=== PATIENT | male | born 1975 | race Caucasian/White ===

== ENCOUNTER 2020-08-17 22:06 | Inpatient (IN) | payer BC ==
[2020-08-17] MEDS ORDERED: SODIUM CHLORIDE 0.9% 500 ML 500 ML IV STA (23:09)
[2020-08-17] MEDS ORDERED: KETOROLAC 15 MG/ML 1 ML VIAL IVP STA (23:09)
[2020-08-17] MEDS ORDERED: DEXAMETHASONE SOD PHOSPHATE 10 MG/ML 1 ML VIAL IV STA (23:09)
[2020-08-17] MEDS ORDERED: SODIUM CHLORIDE 0.9% 1,000 ML IV STA ×2 (23:09)
[2020-08-17] MEDS ORDERED: ACETAMINOPHEN TAB 500 MG TAB PO STA (23:09)
--- NOTE | 2020-08-17 23:11 | ED ---
SOB HPI - General Chief Complaint: Shortness of Breath Stated Complaint: Covid+, low O2 Time Seen by Provider: 08/17/20 23:09 Source: patient, family, RN notes reviewed, old records reviewed Mode of arrival: ambulatory Limitations: no limitations - History of Present Illness Initial Comments: This is a 45-year-old male DF for evaluation of severe shortness of breath, no definite dyspneic during conversation. Patient in known positive for coronavirus had coronavirus positive on the . Symptoms have been increasing and worsening. Persistent fevers shortness of breath with cough bodyaches and pains. Chills. MD Complaint: shortness of breath, cough, pain with inspiration, anxiety -: week(s) Severity: severe Quality: dull, aching Consistency: constant Improves With: rest Worsens With: exertion, movement, coughing Known History Of: other (none) Context: recent URI Associated Symptoms: fever, cough, sputum production Treatments Prior to Arrival: none - Related Data Allergies Allergy/AdvReac Type Severity Reaction Status Date / Time Penicillins Allergy Rash/Hives Verified 08/17/20 23:03 Review of Systems ROS Statement: Those systems with pertinent positive or pertinent negative responses have been documented in the HPI. ROS Other: All systems not noted in ROS Statement are negative. Past Medical History Past Medical History: No Reported History History of Any Multi-Drug Resistant Organisms: None Reported Past Surgical History: No Surgical Hx Reported Past Psychological History: No Psychological Hx Reported Smoking Status: Never smoker Past Alcohol Use History: Occasional Past Drug Use History: None Reported General Exam Limitations: no limitations General appearance: alert, anxious, in distress, obese Head exam: Present: atraumatic, normocephalic, normal inspection Eye exam: Present: normal appearance, PERRL, EOMI. Absent: scleral icterus, conjunctival injection, periorbital swelling ENT exam: Present: normal exam, mucous membranes moist Neck exam: Present: normal inspection. Absent: tenderness, meningismus, lymphadenopathy Respiratory exam: Present: respiratory distress, accessory muscle use, decreased breath sounds, prolonged expiratory. Absent: wheezes, rales, rhonchi, stridor Cardiovascular Exam: Present: regular rate, normal rhythm, normal heart sounds. Absent: systolic murmur, diastolic murmur, rubs, gallop, clicks GI/Abdominal exam: Present: soft, normal bowel sounds. Absent: distended, tenderness, guarding, rebound, rigid Extremities exam: Present: normal inspection, full ROM, normal capillary refill. Absent: tenderness, pedal edema, joint swelling, calf tenderness Back exam: Present: normal inspection Neurological exam: Present: alert, oriented X3, CN II-XII intact Psychiatric exam: Present: normal affect, normal mood Skin exam: Present: warm, dry, intact, normal color. Absent: rash Course Vital Signs 08/17/20 23:04 Temperature 100.4 F H Pulse Rate 102 H Respiratory 20 Rate Blood Pressure 106/67 O2 Sat by Pulse 91 L Oximetry - Reevaluation(s) Reevaluation #1: 08/18/20 02:11 Medical record is reviewed Reevaluation #2: 08/18/20 02:12 Patient remains with significant shortness of breath Reevaluation #3: 08/18/20 02:12 Patient does require supplemental O2 Reevaluation #4: 08/18/20 02:12 Patient is informed of results and questions answered - Consultations Consultation #1: Spoke with sound who agrees to admit the patient Medical Decision Making - Medical Decision Making 42 female DF for evaluation patient Dese for evaluation of shortness of breath. Patient has severe coronavirus. Obesity. Patient be admitted for further evaluation management - Lab Data Result diagrams: 08/17/20 23:42 08/17/20 23:42 Lab Results 08/17/20 08/17/20 08/17/20 Range/Units 23:42 23:42 23:42 WBC 5.9 (3.8-10.6) k/uL RBC 5.03 (4.30-5.90) m/uL Hgb 15.3 (13.0-17.5) gm/dL Hct 44.5 (39.0-53.0) % MCV 88.5 (80.0-100.0) fL MCH 30.4 (25.0-35.0) pg MCHC 34.4 (31.0-37.0) g/dL RDW 12.3 (11.5-15.5) % Plt Count 160 (150-450) k/uL MPV 7.4 Neutrophils % 73 % Lymphocytes % 19 % Monocytes % 6 % Eosinophils % 0 % Basophils % 0 % Neutrophils # 4.3 (1.3-7.7) k/uL Lymphocytes # 1.1 (1.0-4.8) k/uL Monocytes # 0.3 (0-1.0) k/uL Eosinophils # 0.0 (0-0.7) k/uL Basophils # 0.0 (0-0.2) k/uL PT 10.9 (9.0-12.0) sec INR 1.0 (<1.2) APTT 24.5 (22.0-30.0) sec Sodium 138 (137-145) mmol/L Potassium 4.0 (3.5-5.1) mmol/L Chloride 100 (98-107) mmol/L Carbon Dioxide 29 (22-30) mmol/L Anion Gap 9 mmol/L BUN 16 (9-20) mg/dL Creatinine 1.07 (0.66-1.25) mg/dL Est GFR (CKD-EPI)AfAm >90 (>60 ml/min/1.73 sqM) Est GFR (CKD-EPI)NonAf 85 (>60 ml/min/1.73 sqM) Glucose 114 H (74-99) mg/dL Plasma Lactic Acid Nikita (0.7-2.0) mmol/L Calcium 8.4 (8.4-10.2) mg/dL Magnesium 2.2 (1.6-2.3) mg/dL Total Bilirubin 0.6 (0.2-1.3) mg/dL AST 64 H (17-59) U/L ALT 46 (4-49) U/L Alkaline Phosphatase 64 (38-126) U/L Lactate Dehydrogenase 985 H (313-618) U/L C-Reactive Protein 33.9 H (<10.0) mg/L Total Protein 7.0 (6.3-8.2) g/dL Albumin 4.1 (3.5-5.0) g/dL 08/17/20 Range/Units 23:42 WBC (3.8-10.6) k/uL RBC (4.30-5.90) m/uL Hgb (13.0-17.5) gm/dL Hct (39.0-53.0) % MCV (80.0-100.0) fL MCH (25.0-35.0) pg MCHC (31.0-37.0) g/dL RDW (11.5-15.5) % Plt Count (150-450) k/uL MPV Neutrophils % % Lymphocytes % % Monocytes % % Eosinophils % % Basophils % % Neutrophils # (1.3-7.7) k/uL Lymphocytes # (1.0-4.8) k/uL Monocytes # (0-1.0) k/uL Eosinophils # (0-0.7) k/uL Basophils # (0-0.2) k/uL PT (9.0-12.0) sec INR (<1.2) APTT (22.0-30.0) sec Sodium (137-145) mmol/L Potassium (3.5-5.1) mmol/L Chloride (98-107) mmol/L Carbon Dioxide (22-30) mmol/L Anion Gap mmol/L BUN (9-20) mg/dL Creatinine (0.66-1.25) mg/dL Est GFR (CKD-EPI)AfAm (>60 ml/min/1.73 sqM) Est GFR (CKD-EPI)NonAf (>60 ml/min/1.73 sqM) Glucose (74-99) mg/dL Plasma Lactic Acid Nikita 0.9 (0.7-2.0) mmol/L Calcium (8.4-10.2) mg/dL Magnesium (1.6-2.3) mg/dL Total Bilirubin (0.2-1.3) mg/dL AST (17-59) U/L ALT (4-49) U/L Alkaline Phosphatase (38-126) U/L Lactate Dehydrogenase (313-618) U/L C-Reactive Protein (<10.0) mg/L Total Protein (6.3-8.2) g/dL Albumin (3.5-5.0) g/dL - EKG Data -: EKG Interpreted by Me (KG sinus rhythm 93 [place] 178 QRS 112 QTC 479) - Radiology Data Radiology results: report reviewed (Chest x-rays high likelihood of coronavirus pneumonia), image reviewed Critical Care Time Critical Care Time: Yes Total Critical Care Time: 31 Disposition Clinical Impression: Pneumonia due to COVID-19 virus, Coronavirus infection, Hypoxia Disposition: ADMITTED IP TO THIS HOSP Condition: Serious Is patient prescribed a controlled substance at d/c from ED?: No Referrals: None,Stated [Primary Care Provider] - 1-2 days
--- NOTE | 2020-08-17 23:52 | XR ---
EXAMINATION TYPE: XR chest 1V portable DATE OF EXAM: 08/17/2020 COMPARISON: NONE HISTORY: Short of breath TECHNIQUE: 2 views FINDINGS: There is some mild pulmonary interstitial edema. Heart size is normal. There is no pleural effusion. There are no hilar masses. Mediastinum is normal. IMPRESSION: Mild pulmonary interstitial infiltrates. Normal heart.
[2020-08-18 00:05] LABS: Basophils % (A) 0 %; Eosinophils % (A) 0 %; HCT 44.5 % (39.0-53.0); HGB 15.3 gm/dL (13.0-17.5); Lymphocytes # (A) 1.1 k/uL (1.0-4.8); Lymphocytes % (A) 19 %; MCH 30.4 pg (25.0-35.0); MCHC 34.4 g/dL (31.0-37.0); MCV 88.5 fL (80.0-100.0); Mean Platelet Volume 7.4; Monocytes # (A) 0.3 k/uL (0-1.0); Monocytes % (A) 6 %; Neutrophils # (A) 4.3 k/uL (1.3-7.7); Neutrophils % (A) 73 %; Platelet Count 160 k/uL (150-450); RBC 5.03 m/uL (4.30-5.90); RDW 12.3 % (11.5-15.5); WBC 5.9 k/uL (3.8-10.6)
[2020-08-18 00:16] LABS: Partial Thromboplastin Time 24.5 sec (22.0-30.0); Prothrombin Time 10.9 sec (9.0-12.0)
[2020-08-18 00:20] LABS: ALT 46 U/L (4-49); AST 64 U/L (17-59); African American GFR (CKD) >90 (>60 ml/min/1.73 sqM); Albumin 4.1 g/dL (3.5-5.0); Alkaline Phosphatase 64 U/L (38-126); Anion Gap 9 mmol/L; Blood Urea Nitrogen 16 mg/dL (9-20); C Reactive Protein 33.9 mg/L (<10.0); Calcium 8.4 mg/dL (8.4-10.2); Carbon Dioxide 29 mmol/L (22-30); Chloride 100 mmol/L (98-107); Glucose 114 mg/dL (74-99); LDH 985 U/L (313-618); Magnesium 2.2 mg/dL (1.6-2.3); Non-African American GFR(CKD) 85 (>60 ml/min/1.73 sqM); Sodium 138 mmol/L (137-145); Total Bilirubin 0.6 mg/dL (0.2-1.3)
[2020-08-18] MEDS ORDERED: ACETAMINOPHEN TAB 325 MG TAB PO PRN (02:09)
[2020-08-18] MEDS ORDERED: ONDANSETRON 4 MG/2 ML VIAL IVP PRN (02:09)
[2020-08-18] MEDS ORDERED: IBUPROFEN 400 MG TAB PO PRN (02:09)
[2020-08-18] MEDS ORDERED: NALOXONE 0.4 MG/ML 1 ML VIAL IV PRN (02:09)
[2020-08-18] MEDS ORDERED: MORPHINE SULFATE 4 MG/ML SYRINGE IV PRN (02:09)
--- NOTE | 2020-08-18 05:52 | P.HPIM ---
History of Present Illness H&P Date: 08/18/20 Chief Complaint: hypoxemia , SOB 45 year old male with no significant past medical history Patient was diagnosed with Covid about 10 days ago describes symptoms of fevers and chills lower back body aches and intermittent diarrhea denies any chest pain nausea or vomiting He is also suffering from sore throat and shortness of breath his is doing well and she is vaccinated showing no symptoms. He is not sure how he contracted Covid However today his brought him a pulse ox and meter and was found to be hypoxic for which she got alarmed and decided come to the hospital for evaluation In the ED he was found to be hypoxic on room air in the low 90s Chest x-ray showed some patchy infiltrates Blood work showed elevated C-reactive protein and LDH Patient spiking low-grade fevers Review of Systems Pertinent positives as noted in HPI. All other systems were reviewed and are negative Past Medical History Past Medical History: No Reported History History of Any Multi-Drug Resistant Organisms: None Reported Past Surgical History: No Surgical Hx Reported Past Psychological History: No Psychological Hx Reported Smoking Status: Never smoker Past Alcohol Use History: Occasional Past Drug Use History: None Reported - Past Family History family Family Medical History: No Reported History Medications and Allergies Allergies Allergy/AdvReac Type Severity Reaction Status Date / Time Penicillins Allergy Rash/Hives Verified 08/17/20 23:03 Physical Exam Vitals: Vital Signs Temp Pulse Resp BP Pulse Ox 08/18/20 05:12 97.8 F 66 18 138/65 91 L 08/17/20 23:04 100.4 F H 102 H 20 106/67 91 L Intake and Output 08/17/20 08/17/20 08/18/20 14:59 22:59 06:59 Other: Weight 145.603 kg Constitutional: No acute distress, conversant, pleasant Eyes: Anicteric sclerae, moist conjunctiva, Pupils equal round reactive to light ENMT: NC/AT Oropharynx clear, no erythema, or exudates Neck: Supple, FROM, no masses, or JVD No carotid bruits No thyromegaly Lungs: Clear to auscultation Clear to percussion Normal respiratory effort, no accessory muscle use Cardiovascular: Heart regular in rate and rhythm, No murmurs, gallops, or rubs No peripheral edema Abdominal: Soft Nontender, no guarding, rebound or rigidity Abdomen moving with respiration Normoactive bowel sounds No hepatomegaly, No splenomegaly No palpable mass No abdominal wall hernia noted Skin: Normal temperature, tone, texture, turgor No induration No subcutaneous nodules No rash, lesions No ulcers Extremities: No digital cyanosis No clubbing Pedal pulses intact and symmetrical Radial pulses intact and symmetrical No calf tenderness Psychiatric: Alert and oriented to person, place and time Appropriate affect fair judgement Neuro Muscles Strength 5/5 in all 4 extremities Sensation to light touch grossly present throughout Cranial nerves II-XII grossly intact No focal sensory deficits Lymphatics: no palpable cervical or supraclavicular , or inguinal lymph nodes Results CBC & Chem 7: 08/17/20 23:42 08/17/20 23:42 Labs: Abnormal Lab Results - Last 24 Hours (Table) 08/17/20 Range/Units 23:42 Glucose 114 H (74-99) mg/dL AST 64 H (17-59) U/L Lactate Dehydrogenase 985 H (313-618) U/L C-Reactive Protein 33.9 H (<10.0) mg/L Assessment and Plan Assessment: acute hypoxic respiratory failure acute covid pneumonitis plan supportive care tylenol for fever IVF hydration with normal saline supplemental oxygen as needed dexamethasone zinc, vit c and d lovenox for DVT ppx anticipated length of stay < 2 midnights anticipated discharge home follow up labs d dimer, CRP , LDH , ferritin , cbc and bmp
[2020-08-18] MEDS ORDERED: DEXAMETHASONE SOD PHOSPHATE 10 MG/ML 1 ML VIAL IV SCH (09:00)
[2020-08-18] MEDS: ENOXAPARIN 40 MG/0.4 ML SYRINGE SQ SCH (09:29)
[2020-08-18] MEDS: CHOLECALCIFEROL 25 MCG (1000 IU) TABLET PO SCH (09:29)
[2020-08-18] MEDS: ZINC SULFATE 220 MG CAP PO SCH (09:29)
[2020-08-18] MEDS: dexAMETHasone 2 MG TAB PO SCH (09:29)
[2020-08-18] MEDS: ASCORBIC ACID 500 MG TAB PO SCH ×2 (09:29→21:38)
[2020-08-18 10:08] LABS: ALT 41 U/L (4-49); AST 54 U/L (17-59); African American GFR (CKD) >90 (>60 ml/min/1.73 sqM); Albumin 3.7 g/dL (3.5-5.0); Albumin/Globulin Ratio 1.4; Alkaline Phosphatase 59 U/L (38-126); Anion Gap 8 mmol/L; Blood Urea Nitrogen 16 mg/dL (9-20); C Reactive Protein 31.1 mg/L (<10.0); Calcium 7.9 mg/dL (8.4-10.2); Carbon Dioxide 29 mmol/L (22-30); Chloride 105 mmol/L (98-107); Globulin 2.7 g/dL; Glucose 136 mg/dL (74-99); LDH 884 U/L (313-618); Non-African American GFR(CKD) >90 (>60 ml/min/1.73 sqM); Potassium 4.2 mmol/L (3.5-5.1); Sodium 142 mmol/L (137-145); Total Bilirubin 0.5 mg/dL (0.2-1.3); Total Protein 6.4 g/dL (6.3-8.2)
[2020-08-18 10:29] LABS: Basophils % (A) 1 %; Eosinophils % (A) 0 %; HCT 43.4 % (39.0-53.0); HGB 14.7 gm/dL (13.0-17.5); Lymphocytes # (A) 0.9 k/uL (1.0-4.8); Lymphocytes % (A) 29 %; MCH 30.4 pg (25.0-35.0); MCHC 33.8 g/dL (31.0-37.0); Mean Platelet Volume 7.4; Monocytes # (A) 0.1 k/uL (0-1.0); Monocytes % (A) 4 %; Neutrophils # (A) 1.9 k/uL (1.3-7.7); Neutrophils % (A) 64 %; Platelet Count 171 k/uL (150-450); RBC 4.82 m/uL (4.30-5.90); RDW 12.7 % (11.5-15.5)
[2020-08-18] MEDS ORDERED: HYDROcodone/APAP 5-325MG 1 EACH TAB PO PRN (10:31)
--- NOTE | 2020-08-18 13:20 | P.CNPUL ---
History of Present Illness Consult date: 08/18/20 Requesting physician: Wei Stoddard Reason for consult: other Chief complaint: Fatigue and weakness. History of present illness: 45-year-old male, seen in the emergency department. The patient came in not feeling well for the last 11-12 days. He apparently tested positive for coronavirus 8 days ago. Currently, he is on 2 L nasal cannula. Not receiving any IV fluids. The patient's major complaint was that of fatigue and weakness, but he also had some shortness of breath particularly on exertion. He denied any chest pain or chest discomfort. Because his symptoms were worsening, he came into the emergency department to be evaluated. White count 3, he will 14.7, hematocrit 43.4, platelet count 171,000. PT INR PTT and d-dimer were all normal. Sodium 142, potassium 4.2, chlorides 105, CO2 29, anion gap 8, BUN 16, creatinine 0.77. LDH 884. C-reactive protein 31.1. Even though the patient was asymptomatic from the pulmonary standpoint, his chest x-ray did reveal bilateral infiltrates. Review of Systems REVIEW OF SYSTEMS: CONSTITUTIONAL: Weakness and fatigue. NEUROLOGIC: [ Negative.] HEENT: [ Negative.] CARDIAC: [Negative.] PULMONARY: Minimal shortness of breath. GI: [Negative.] : [Negative.] RHEUMATOLOGIC: [ Negative.] IMMUNOLOGIC: [ Negative.] ENDOCRINE: [Negative. ] DERMATOLOGIC: [Negative.] Past Medical History Past Medical History: No Reported History History of Any Multi-Drug Resistant Organisms: None Reported Past Surgical History: No Surgical Hx Reported Past Psychological History: No Psychological Hx Reported Smoking Status: Never smoker Past Alcohol Use History: Occasional Past Drug Use History: None Reported - Past Family History family Family Medical History: No Reported History Medications and Allergies Home Medications Medication Instructions Recorded Confirmed Type Ascorbic Acid [Vitamin C] 1,000 mg PO DAILY 08/18/20 08/18/20 History Zinc 50 mg PO DAILY 08/18/20 08/18/20 History Allergies Allergy/AdvReac Type Severity Reaction Status Date / Time Penicillins Allergy Rash/Hives Verified 08/18/20 07:28 Physical Exam Osteopathic Statement: *. No significant issues noted on an osteopathic structural exam other than those noted in the History and Physical/Consult. Vitals: Vital Signs Temp Pulse Pulse Resp BP BP Pulse Ox 08/18/20 08:00 97.8 F 68 17 105/64 92 L 08/18/20 05:12 97.8 F 66 18 138/65 91 L 08/17/20 23:04 100.4 F H 102 H 20 106/67 91 L Intake and Output 08/17/20 08/18/20 08/18/20 22:59 06:59 14:59 Other: Weight 145.603 kg No acute distress, oriented 3. Currently on 2 L nasal cannula. No conversational dyspnea or use of accessory muscles. HEENT examination is grossly unremarkable. Mucous membranes are moist. No oral lesions. Neck supple. Full range of motion. No adenopathy thyromegaly or neck vein distention. Cardiovascular examination reveals regular rhythm rate. S1-S2 normal. No S3 or S4. No discernible murmur noted. Heart rate 66 bpm. Lungs reveal mostly clear breath sounds. Minimal scattered rhonchi are noted. No wheezes or crackles. Abdomen soft bowel sounds are heard. No masses or tenderness. Extremities are intact. No cyanosis clubbing or edema. Skin is without rash or lesion. Neurologic examination is brief but nonfocal. Results - Laboratory Findings CBC and BMP: 08/18/20 08:57 08/18/20 08:57 PT/INR, D-dimer PT 10.9 sec (9.0-12.0) 08/17/20 23:42 INR 1.0 (<1.2) 08/17/20 23:42 D-Dimer 0.26 mg/L FEU (<0.60) 08/18/20 08:57 Abnormal lab findings: Abnormal Labs 08/17/20 08/18/20 08/18/20 23:42 08:57 08:57 WBC 3.0 L Lymphocytes # 0.9 L Glucose 114 H 136 H Calcium 7.9 L AST 64 H Lactate Dehydrogenase 985 H 884 H C-Reactive Protein 33.9 H 31.1 H - Diagnostic Findings Chest x-ray: image reviewed Assessment and Plan Assessment: Acute coronavirus infection, with mild COVID 19 pneumonitis. No other significant past medical history. Lifelong nonsmoker. Plan: Plan dated 08/18/2020. Based on the patient's symptoms, x-ray, vital signs, etc., we thought he was a candidate only for vitamins, including vitamin C, vitamin D3, and zinc, Decadron, and Lovenox. Follow the patient closely and make recommendations were appropriate. Prognosis is guarded. He is outside the window for REM. Time with Patient: Greater than 30
--- NOTE | 2020-08-18 15:20 | P.PN ---
Subjective Progress Note Date: 08/18/20 Principal diagnosis: Low oxygen level at home Hospitalist Interval Note Patient is a 45-year-old male with no significant past medical history who presented due to concerns for low oxygen levels with known COVID for the last 8 days. On presentation to the ER he was 91% on room air, temperature 100.4, pulse 102. Initial laboratory analysis d-dimer normal, LDH 985, CRP 33.9. He was started on steroids and admitted for further monitoring. The next day he was requiring 2 L nasal cannula. He was seen by pulmonary who agreed with vitamins and Decadron as well as Lovenox. Will continue to be monitored. Patient seen and examined at bedside. Feeling better than yesterday, no chest pain, no shortness of breath, no headache. Vital signs reviewed General: `, no distress, appears at stated age Derm: warm, dry Head: atraumatic, normocephalic, symmetric Eyes: EOMI, no lid lag, anicteric sclera Mouth: no lip lesion, mucus membranes moist Cardiovascular: S1S2 reg, no murmur, positive posterior tibial pulse bilateral, Lungs: Decreased bs bilateral, no rhonchi, no rales , no accessory muscle use Abdominal: soft, nontender to palpation, no guarding, no appreciable organomegaly Ext: no gross muscle atrophy, no edema, no contractures Neuro: CN II-XI grossly intact, no focal neuro deficits Psych: Alert, oriented, appropriate affect Assessment/Plan: Covid 19 pneumonitis, acute hypoxic respiratory failure -Continue with Decadron, vitamin D, vitamin C, and zinc -Continue to monitor for 24 hours anticipate discharge in a.m. if oxygenation has remained stable or improved. This is an update note for patient , for full note on 08/18 see Hand P. There is no charge associated with this note. Objective - Vital Signs Vital signs: Vital Signs Temp 98.1 F 08/18/20 13:00 Pulse 68 08/18/20 13:00 Resp 19 08/18/20 13:00 BP 113/77 08/18/20 13:00 Pulse Ox 91 L 08/18/20 13:00 Intake & Output 08/17/20 08/18/20 08/18/20 18:59 06:59 18:59 Weight 145.603 kg 145.603 kg - Labs CBC & Chem 7: 08/18/20 08:57 08/18/20 08:57 Labs: Abnormal Lab Results - Last 24 Hours (Table) 08/17/20 08/18/20 08/18/20 Range/Units 23:42 08:57 08:57 WBC 3.0 L (3.8-10.6) k/uL Lymphocytes # 0.9 L (1.0-4.8) k/uL Glucose 114 H 136 H (74-99) mg/dL Calcium 7.9 L (8.4-10.2) mg/dL AST 64 H (17-59) U/L Lactate Dehydrogenase 985 H 884 H (313-618) U/L C-Reactive Protein 33.9 H 31.1 H (<10.0) mg/L
[2020-08-18 19:02] LABS: Ferritin 1401.4 ng/mL (22.0-322.0)
[2020-08-19 04:44] VITALS: RESP 18
[2020-08-19 08:32] VITALS: BP 118/70; PULSE 86; TEMP 99.1
[2020-08-19] MEDS: ENOXAPARIN 40 MG/0.4 ML SYRINGE SQ SCH (09:05)
[2020-08-19] MEDS: ASCORBIC ACID 500 MG TAB PO SCH (09:05)
[2020-08-19] MEDS: ZINC SULFATE 220 MG CAP PO SCH (09:05)
[2020-08-19] MEDS: CHOLECALCIFEROL 25 MCG (1000 IU) TABLET PO SCH (09:05)
[2020-08-19] MEDS: dexAMETHasone 2 MG TAB PO SCH (09:05)
--- NOTE | 2020-08-19 11:16 | P.PN ---
Subjective Progress Note Date: 08/19/20 Principal diagnosis: Acute hypoxemic respiratory failure. 45-year-old male, seen in the emergency department. The patient came in not feeling well for the last 11-12 days. He apparently tested positive for coronavirus 8 days ago. Currently, he is on 2 L nasal cannula. Not receiving any IV fluids. The patient's major complaint was that of fatigue and weakness, but he also had some shortness of breath particularly on exertion. He denied any chest pain or chest discomfort. Because his symptoms were worsening, he came into the emergency department to be evaluated. White count 3, he will 14.7, hematocrit 43.4, platelet count 171,000. PT INR PTT and d-dimer were all normal. Sodium 142, potassium 4.2, chlorides 105, CO2 29, anion gap 8, BUN 16, creatinine 0.77. LDH 884. C-reactive protein 31.1. Even though the patient was asymptomatic from the pulmonary standpoint, his chest x-ray did reveal bilateral infiltrates. Progress note dated 08/19/2020. 45-year-old male, seen yesterday in the emergency department. The patient's currently on 2 L nasal cannula. He had not been feeling well for about 12-13 days prior to admission. He did test positive for coronavirus 9 days prior. The patient is doing recently well. States he feels much better. The patient's major complaints include a primarily fatigue and weakness. He did have some shortness of breath and some minimal cough as well. Anyway, the patient thinks that he might be ready for discharge. I told him, he might have to be discharged home on oxygen therapy. We'll check a resting room air saturation, and also his saturations when he is walking around on room air. I gave instructions to the nurse. Objective - Vital Signs Vital signs: Vital Signs Temp 99.1 F 08/19/20 08:00 Pulse 86 08/19/20 08:00 Resp 18 08/19/20 08:00 BP 118/70 08/19/20 08:00 Pulse Ox 95 08/19/20 08:00 Intake & Output 08/18/20 08/19/20 08/19/20 18:59 06:59 18:59 Intake Total 240 Balance 240 Weight 145.603 kg Intake: Oral 240 - Exam No acute distress, oriented 3. Currently on 2 L nasal cannula. No conversational dyspnea or use of accessory muscles. HEENT examination is grossly unremarkable. Mucous membranes are moist. No oral lesions. Neck supple. Full range of motion. No adenopathy thyromegaly or neck vein distention. Cardiovascular examination reveals regular rhythm rate. S1-S2 normal. No S3 or S4. No discernible murmur noted. Heart rate 85 bpm. Lungs reveal mostly clear breath sounds. Minimal scattered rhonchi are noted. No wheezes or crackles. Abdomen soft bowel sounds are heard. No masses or tenderness. Extremities are intact. No cyanosis clubbing or edema. Skin is without rash or lesion. Neurologic examination is brief but nonfocal - Labs CBC & Chem 7: 08/18/20 08:57 08/18/20 08:57 Labs: Abnormal Lab Results - Last 24 Hours (Table) 08/18/20 Range/Units 08:57 Ferritin 1401.4 H (22.0-322.0) ng/mL Assessment and Plan Assessment: Acute coronavirus infection, with mild COVID 19 pneumonitis. No other significant past medical history. Lifelong nonsmoker. Plan: Plan dated 08/18/2020. Based on the patient's symptoms, x-ray, vital signs, etc., we thought he was a candidate only for vitamins, including vitamin C, vitamin D3, and zinc, Decadron, and Lovenox. Follow the patient closely and make recommendations were appropriate. Prognosis is guarded. He is outside the window for REM. Plan dated 08/19/2020. Currently, the patient seemed be doing well. He is on 2 L. He states she's feeling better. He denies any shortness of breath. He would like to be discharged if possible. I told him that might be possible that we have to check to see whether or not he should be discharged home on oxygen. He would need a resting room air saturation, and also saturations while walking around on room air. Continue with his usual medications including vitamins, and Decadron. No additional recommendations are made. Follow-up in our office in a couple weeks or so. Time with Patient: Less than 30
[2020-08-19 12:58] LABS: Basophils % (A) 0 %; Eosinophils % (A) 0 %; HCT 43.5 % (39.0-53.0); Lymphocytes # (A) 0.8 k/uL (1.0-4.8); Lymphocytes % (A) 6 %; MCH 30.9 pg (25.0-35.0); MCHC 34.5 g/dL (31.0-37.0); MCV 89.4 fL (80.0-100.0); Mean Platelet Volume 7.3; Monocytes # (A) 0.5 k/uL (0-1.0); Monocytes % (A) 4 %; Neutrophils # (A) 10.8 k/uL (1.3-7.7); Neutrophils % (A) 89 %; Platelet Count 234 k/uL (150-450); RBC 4.87 m/uL (4.30-5.90); RDW 12.7 % (11.5-15.5); WBC 12.1 k/uL (3.8-10.6)
[2020-08-19 13:29] LABS: ALT 43 U/L (4-49); AST 59 U/L (17-59); African American GFR (CKD) >90 (>60 ml/min/1.73 sqM); Albumin 3.8 g/dL (3.5-5.0); Alkaline Phosphatase 62 U/L (38-126); Anion Gap 9 mmol/L; Blood Urea Nitrogen 14 mg/dL (9-20); Calcium 9.1 mg/dL (8.4-10.2); Carbon Dioxide 30 mmol/L (22-30); Chloride 105 mmol/L (98-107); Glucose 130 mg/dL (74-99); Magnesium 2.2 mg/dL (1.6-2.3); Non-African American GFR(CKD) >90 (>60 ml/min/1.73 sqM); Phosphorus 1.9 mg/dL (2.5-4.5); Sodium 144 mmol/L (137-145); Total Bilirubin 0.7 mg/dL (0.2-1.3); Total Protein 6.6 g/dL (6.3-8.2)
[2020-08-19 14:46] VITALS: BMI 43.5
--- NOTE | 2020-08-19 22:13 | P.DS ---
Providers Date of admission: 08/18/20 02:09 Expected date of discharge: 08/19/20 Attending physician: Wei Stoddard MD Consults: 08/18/20 02:09 Consult Physician Routine Consulting Provider: Frank Callahan Consult Reason/Comments: covid Do you want consulting provider notified?: Yes Primary care physician: Stated None Hospital Course: Discharge Diagnosis: Covid 19 pneumonitis Acute hypoxic respiratory failure Morbid obesity with BMI 43.5 Hospital Course: Patient is a 45-year-old male with no significant past medical history who presented due to concerns for low oxygen levels with known COVID for the last 8 days. On presentation to the ER he was 91% on room air, temperature 100.4, pulse 102. Initial laboratory analysis d-dimer normal, LDH 985, CRP 33.9. He was started on steroids and admitted for further monitoring. The next day he was requiring 2 L nasal cannula. He was seen by pulmonary who agreed with vitamins and Decadron as well as Lovenox. He was able to come off of oxygen on the morning of 08/19 and his room air pulse ox was 89% with ambulation. He was determined stable for discharge home. He'll complete another 8 days of dexamethasone therapy, Inc., vitamin C, vitamin D, and Pepcid. He'll follow-up with his primary care doctor out of [place] and Dr. Oneill. He will stay off of work for the next 7 days. Patient seen and examined at bedside. Feeling much better, shortness of breath improved, still feels mildly febrile, feels as though he can manage well at home . Vital signs reviewed and stable. General: non toxic, no distress, appears at stated age Derm: warm, dry Head: atraumatic, normocephalic, symmetric Eyes: EOMI, no lid lag, anicteric sclera Mouth: no lip lesion, mucus membranes moist Cardiovascular: S1S2 reg, no murmur, positive posterior tibial pulse bilateral, Lungs: Coarse breath sounds bilateral, no rhonchi, no rales , no accessory muscle use Abdominal: soft, nontender to palpation, no guarding, no appreciable organomegaly Ext: no gross muscle atrophy, no edema, no contractures Neuro: CN II-XI grossly intact, no focal neuro deficits Psych: Alert, oriented, appropriate affect A total of 35 minutes of time were spent preparing this complex discharge summary . Patient Condition at Discharge: Good Plan - Discharge Summary Discharge Rx Participant: No New Discharge Prescriptions: New dexAMETHasone [Hexadrol] 6 mg PO DAILY 8 Days #24 tab Famotidine [Pepcid] 20 mg PO DAILY #10 tablet Ergocalciferol [Vitamin D2 (1250 Mcg = 09642 Iu)] 50,000 unit PO WEEKLY #4 capsule Continue Ascorbic Acid [Vitamin C] 1,000 mg PO DAILY Zinc 50 mg PO DAILY Discharge Medication List Ascorbic Acid [Vitamin C] 1,000 mg PO DAILY 08/18/20 [History] Zinc 50 mg PO DAILY 08/18/20 [History] Ergocalciferol [Vitamin D2 (1250 Mcg = 09592 Iu)] 50,000 unit PO WEEKLY #4 capsule 08/19/20 [Rx] Famotidine [Pepcid] 20 mg PO DAILY #10 tablet 08/19/20 [Rx] dexAMETHasone [Hexadrol] 6 mg PO DAILY 8 Days #24 tab 08/19/20 [Rx] Follow up Appointment(s)/Referral(s): Mejia Oneill DO [Doctor of Osteopathic Medicine] - 09/23/20 10:00 am None,Stated [Primary Care Provider] - 1-2 days Patient Instructions/Handouts: Coronavirus Disease 2019 (COVID-19) Activity/Diet/Wound Care/Special Instructions: Activity: as tolerated, rest frequently if short of breath Diet: regular Special Instructions: off work for 7 more days Discharge/Stand Alone Forms: Work/Release Restrictions Form Discharge Disposition: HOME SELF-CARE
== END 2020-08-19 15:33 | disposition home or self-care (01) | DRG 177 ==
LOC: EC 22:06 → 4SSUR 08-18 02:09 → 1SOBS 08-18 07:54
PROVIDERS: ADMIT Internal Medicine; ATTEND Internal Medicine
PROC: 3E0333Z Introduction of Anti-inflammatory into Peripheral Vein, Percutaneous Approach (ICD-10-PCS; principal; 2020-08-17)
DX: U07.1 COVID-19 (principal); J12.82 Pneumonia due to coronavirus disease 2019; J96.01 Acute respiratory failure with hypoxia; Z68.41 Body mass index [BMI] 40.0-44.9, adult; E66.01 Morbid (severe) obesity due to excess calories; F41.9 Anxiety disorder, unspecified; Z88.0 Allergy status to penicillin
CPT/HCPCS: 36415; 71045; 80053; 82728; 83605; 83615; 83735; 84100; 85025; 85379; 85610; 85730; 86140; 93005; 96365; 96366; 96375; 99291

== ENCOUNTER → 2022-02-09 | Outpatient (CLI) | payer BC ==
--- NOTE | 2022-02-09 16:15 | P.SLEEP ---
History of Present Illness DATE: 02/09/2022 CONSULTATION/NEW PATIENT EVALUATION HISTORY OF PRESENT ILLNESS/SLEEP-WAKE EVALUATION: 46 year old gentleman had been evaluated in the sleep center for possible obstructive sleep apnea hypopnea syndrome. SLEEP SCHEDULE: Usually sleep schedule on [id number] PM to 5 AM], during days of from 11 PM to 6 AM]. FALLING ASLEEP: Usually no significant problems with falling asleep, no TV in bedroom]. DURING SLEEP:The patient sleeps on the stomach position, snores, wakes up from sleep 2 times with nocturia. ] No history of hypnogogical hallucinations, sleep paralysis, or cataplexy. DURING THE DAY/WAKE STATE: Patient denied any significant excessive daytime sleepiness [place] Sleepiness Scale is 4.]. He may take nap during lunchtime]. PAST MEDICAL HISTORY: Headaches]. PAST SURGICAL HISTORY: None]. MEDICATIONS: None]. SOCIAL HISTORY: Positive history of smoking for about 10 years, quit many years ago , alcohol consumption occasional. FAMILY HISTORY:Hypertension, heart problems, diabetes]. REVIEW OF SYSTEMS:Snoring, awakenings from sleep]. No fevers. No double vision. No recent chest pain. No shortness of breath. No abdominal pain. No bleeding episodes. No blood in urine. No seizure episodes. PHYSICAL EXAMINATION: GENERAL: A pleasant patient without any distress. VITAL SIGNS: B 136/72] , HR84] , R 14] , weigh 333] pounds, heigh 5 ]ian 11 and 2/3]inches, body mass inde 46.1] . HEENT: PERRLA, EOMI. Evaluation of oropharynx showed tongue protrudes midline, low position of soft palate Mallampat 3-4]. NECK: Supple. No JVD. Thyroid is not palpable. 19-1/4] inches in circumference. LUNGS: Clear to percussion and to auscultation. Good air exchange. No wheezing or rhonchi. HEART: S1, S2 regular. No murmurs, gallops or rubs. ABDOMEN: Soft and nontender. Bowel sounds are present. No organomegaly appreciated. Obese EXTREMITIES: No clubbing or cyanosis. 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 Cranial nerves 2 to 7 intact. There is no fasciculation or atrophy noted. No focal deficits observed. ASSESSMENT: 1. Snoring, multiple awakenings from sleep, extremely low position of soft palate Mallampati 34, wide neck 19-1/4 inches in circumference, episodes of daytime sleepiness with naps at lunchtime. Obstructive sleep apnea hypopnea syndrome]. 2. Obesity body mass index 46.1]. 3 history of headaches, some of headaches starts in the morning after awakenings]. 4. 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 PLAN: 1. Home sleep apnea test 2. CPAP/BiPAP titration if sleep study confirms obstructive sleep apnea- hypopnea syndrome. 3. Preferable position during sleep on the side. 4. No driving if patient feels any sleepiness. Patient is aware of civil and criminal liability for unsafe driving. 5. Sleep hygiene with regular sleep time for at least 7.5-8 hours. 6. Watching and losing weight. Thank you very much for referring this patient for consultation. Sincerely, Alexis Marlow MD, PhD, FAASM. Diplomat of [employer], Sleep Medicine Board by [employer] Owner of [facility] Past Medical History Past Medical History: No Reported History Additional Past Medical History / Comment(s): Pt tested cov[facility]+ pm 08/08/[facility] History of Any Multi-Drug Resistant Organisms: None Reported Past Surgical History: No Surgical Hx Reported Past Anesthesia/Blood Transfusion Reactions: Unable to Obtain Additional Past Anesthesia/Blood Transfusion Reaction / Comment(s): Pt has never had surgery. Smoking Status: Former smoker - Past Family History Father Family Medical History: Diabetes Mellitus Additional Family Medical History / Comment(s): diabetes type II Mother Family Medical History: Diabetes Mellitus, Osteoarthritis (OA), Respiratory Disorder Additional Family Medical History / Comment(s): Mother has covid. family Family Medical History: No Reported History Medications and Allergies Home Medications Medication Instructions Recorded Confirmed Type Ascorbic Acid [Vitamin C] 1,000 mg PO DAILY 08/18/20 08/18/20 History Zinc 50 mg PO DAILY 08/18/20 08/18/20 History Ergocalciferol [Vitamin D2 (1250 50,000 unit PO WEEKLY #4 capsule 08/19/20 Rx Mcg = 38439 Iu)] Famotidine [Pepcid] 20 mg PO DAILY #10 tablet 08/19/20 Rx dexAMETHasone ORAL [Hexadrol] 6 mg PO DAILY 8 Days #24 tab 08/19/20 Rx Allergies Allergy/AdvReac Type Severity Reaction Status Date / Time Penicillins Allergy Rash/Hives Verified 08/18/20 07:28 Sleep Note - Sleep Note Sleep Note: Temperature: Pulse Rate: Respiratory Rate: Blood Pressure: SpO2: Height: Weight: BMI: Neck Circumference:
== END | disposition home or self-care (01) ==
LOC: SLEEP 15:15
PROVIDERS: ATTEND Internal Medicine
DX: G47.33 Obstructive sleep apnea (adult) (pediatric) (principal); Z87.891 Personal history of nicotine dependence; E66.9 Obesity, unspecified; Z68.42 Body mass index [BMI] 45.0-49.9, adult; R51.9 Headache, unspecified; Z88.0 Allergy status to penicillin
CPT/HCPCS: 99211